=== PATIENT | female | born 1985 | race Caucasian/White ===

== ENCOUNTER 2017-10-22 08:36 | Emergency (ER) | payer SELFPAY ==
[~2017-10-22] VITALS: Ht 167.6 cm; Wt 86.8 kg
[2017-10-22 08:53] VITALS: BP 139/84
--- NOTE | 2017-10-22 08:56 | NUR ---
AAO PT AMBULATES TO BED 12 AFTER PROVIDING URINE SAMPLE
--- NOTE | 2017-10-22 09:00 | NUR ---
32f bib friend with c/o 6/10 intermittent "sharp" mid lower abd pain x last night. Pt denies any n/v/d or fevers. Pt sts she is approx 3-4 wks . Pt sts approx LMP 09/19/17. A0. Pt denies any vaginal bleeding or discharge. Pt is aox4 with steady gait. RR are even and unlabored. Skin warm/pink/dry. No acute distress at this time. Awaiting er md piña. All needs met at this time. Will continue to monitor.
--- NOTE | 2017-10-22 09:10 | NUR ---
lab by bedside
--- NOTE | 2017-10-22 09:16 | NUR ---
us by bedside
[2017-10-22 09:22] LABS: BASOPHILS # (AUTO) 0.3 K/uL (0.00-0.22); EOSINOPHILS # (AUTO) 0.1 K/uL (0-0.4); EOSINOPHILS % (AUTO) 1.1 % (0.0-4.0); HEMATOCRIT 38.9 % (36-48); HEMOGLOBIN 12.8 g/dL (12.0-16.0); LYMPHOCYTES # (AUTO) 2.4 K/uL (2.5-16.5); LYMPHOCYTES % (AUTO) 27.9 % (20.5-51.1); MEAN CORPUSCULAR HEMOGLOBIN 27 pg (27-31); MEAN CORPUSCULAR HGB CONC 33 g/dL (33-37); MEAN CORPUSCULAR VOLUME 82 fL (80-94); MONOCYTES # (AUTO) 0.5 K/uL (0.8-1.0); MONOCYTES % (AUTO) 5.8 % (1.7-9.3); NEUTROPHILS # (AUTO) 5.2 K/uL (1.8-7.7); NEUTROPHILS % (AUTO) 61.2 % (42.2-75.2); PLATELET COUNT (AUTO) 245 K/uL (140-450); RED BLOOD CELL COUNT(AUTO) 4.73 MIL/uL (4.20-5.40); RED CELL DISTRIBUTION WIDTH 13.1 % (11.6-13.7); WHITE BLOOD COUNT (AUTO) 8.5 K/uL (4.8-10.8)
[2017-10-22 09:23] LABS: BILIRUBIN,URINE NEGATIVE (NEGATIVE); BLOOD, URINE NEGATIVE (NEGATIVE); COLOR,URINE YELLOW (YELLOW); LEUKOCYTE ESTERASE ,URINE NEGATIVE (NEGATIVE); NITRITE, URINE NEGATIVE (NEGATIVE); UGLUCOSE 1+ (NEGATIVE)
--- NOTE | 2017-10-22 09:36 | NUR ---
Note undone in EDM - 10/22/17 at 0940 by JOON Patient discharged with v/s stable. Written and verbal after care instructions given and explained. Patient alert, oriented and verbalized understanding of instructions. Ambulatory with steady gait. All questions addressed prior to discharge. ID band removed. Patient advised to follow up with PMD. Rx of Tamiflu, Motin, and Prednisone given. Patient educated on indication of medication including possible reaction and side effects. Opportunity to ask questions provided and answered.
[2017-10-22 09:47] LABS: APPEARANCE,URINE SLIGHTLY HAZY (CLEAR); RBC,URINE 0-5 (RARE) /HPF (0-5)
[2017-10-22 09:48] LABS: WBC,URINE 0-5 (RARE) /HPF (0-5); YEAST,URINE Few /HPF (None Seen)
[2017-10-22] MEDS ORDERED: DICYCLOMINE HCL LIQUID 20 MG, ALUMINUM HYD/MAG/SIMETHICONE 30 ML, LIDOCAINE VISCOUS 2% ... PO ONE ×3 (09:55)
[2017-10-22 11:13] VITALS: BP 137/72
--- NOTE | 2017-10-22 11:13 | NUR ---
Patient discharged with v/s stable. Written and verbal after care instructions given and explained. Patient verbalized understanding. Ambulatory with steady gait. All questions addressed prior to discharge. Advised to follow up with PMD.
== END 2017-10-22 11:13 | disposition home or self-care (01) ==
LOC: MED 08:36
DX: O20.0 Threatened abortion (principal); I10 Essential (primary) hypertension; E11.9 Type 2 diabetes mellitus without complications; Z90.49 Acquired absence of other specified parts of digestive tract; Z3A.01 Less than 8 weeks gestation of pregnancy
CPT/HCPCS: 36415; 76801; 76817; 81001; 81025; 84702; 85025; 86900; 86901; 87086; 99285; Q0092

== ENCOUNTER 2017-10-27 15:37 | Emergency (ER) | payer SELFPAY ==
[~2017-10-27] VITALS: Ht 167.6 cm; Wt 86.6 kg
[2017-10-27 15:46] VITALS: BP 134/88
--- NOTE | 2017-10-27 15:55 | NUR ---
PT AMBULATED TO [facility]
--- NOTE | 2017-10-27 16:03 | NUR ---
PATIENT PRESENTS TO ED WITH LEFT INDEX LAC WHILE ATTEMPTING TO OPEN A BOTTLE APPROX 1 HR AGO. TETANUS SHOT-UTD JUL 2017 PT IS 5 WEEKS MED HX: DM, HTN RX: METFORMIN, VITAMIN; DENIES N/V/D; SKIN IS PINK/WARM/DRY; AAOX4 WITH EVEN AND STEADY GAIT; LUNGS CLEAR BL; HR EVEN AND REGULAR; PT DENIES ANY FEVER, CP, SOB, OR COUGH AT THIS TIME; PATIENT STATES PAIN OF 5/10 AT THIS TIME; VSS; ER MD MADE AWARE OF PT STATUS.
--- NOTE | 2017-10-27 16:07 | NUR ---
MARGARET WILLARD EVALUATING PT AT BEDSIDE
--- NOTE | 2017-10-27 16:14 | NUR ---
PT MOVED TO BED 4
[2017-10-27] MEDS ORDERED: LIDOCAINE 1% 500 MG/50 ML VIAL INJ SCH (16:15)
[2017-10-27] MEDS ORDERED: BUPIVACAINE-MPF 0.5% 10 ML VIAL INJ ONE (16:15)
[2017-10-27] MEDS ORDERED: LIDOCAINE MPF 1% - **ER/OR** 5 ML ONE (16:17)
[2017-10-27] MEDS ORDERED: BACITRACIN OINT 500 UNITS/GM PKT TP ONE (16:50)
[2017-10-27 17:07] VITALS: BP 131/81
--- NOTE | 2017-10-27 17:07 | NUR ---
Patient discharged with v/s stable. Written and verbal after care instructions given and explained. Patient alert, oriented and verbalized understanding of instructions. Ambulatory with steady gait. All questions addressed prior to discharge. ID band removed. Patient advised to follow up with PMD. Rx of KEFLEX, TYLENOL given. Patient educated on indication of medication including possible reaction and side effects. Opportunity to ask questions provided and answered.
== END 2017-10-27 17:07 | disposition home or self-care (01) ==
LOC: MED 15:37
DX: S61.211A Laceration without foreign body of left index finger without damage to nail, initial encounter (principal); W26.0XXA Contact with knife, initial encounter; Y93.89 Activity, other specified; Y92.89 Other specified places as the place of occurrence of the external cause; Y99.8 Other external cause status
CPT/HCPCS: 12002; 99283; J2001; J3490

== ENCOUNTER 2017-11-25 05:45 | Emergency (ER) | payer MEDICAID ==
[~2017-11-25] VITALS: Ht 167.6 cm; Wt 92.6 kg
[2017-11-25 05:48] VITALS: BP 137/90
--- NOTE | 2017-11-25 05:55 | NUR ---
lower abd pain radiating to her back started last night, 2 months lmp unsure . DENIES N/V/D; SKIN IS PINK/WARM/DRY; AAOX4 WITH EVEN AND STEADY GAIT; LUNGS CLEAR BL; HR EVEN AND REGULAR; PT DENIES ANY FEVER, CP, SOB, OR COUGH AT THIS TIME; PATIENT STATES PAIN OF 7/10 AT THIS TIME; VSS; PATIENT POSITIONED FOR COMFORT; HOB ELEVATED; BEDRAILS UP X2; BED DOWN. ER MD MADE AWARE OF PT STATUS. PT'S AT BEDSIDE
--- NOTE | 2017-11-25 06:06 | NUR ---
PATIENT AMBULATED TO ER BED 10
[2017-11-25] MEDS ORDERED: ACETAMINOPHEN EXTRA STRENGTH 500 MG TAB PO ONE (06:50)
[2017-11-25 07:11] LABS: BASOPHILS # (AUTO) 0.4 K/uL (0.00-0.22); BASOPHILS % (AUTO) 4.7 % (0.0-2.0); EOSINOPHILS # (AUTO) 0.1 K/uL (0-0.4); EOSINOPHILS % (AUTO) 1.8 % (0.0-4.0); HEMATOCRIT 39.4 % (36-48); HEMOGLOBIN 13.3 g/dL (12.0-16.0); LYMPHOCYTES # (AUTO) 2.6 K/uL (2.5-16.5); LYMPHOCYTES % (AUTO) 31.7 % (20.5-51.1); MEAN CORPUSCULAR HEMOGLOBIN 29 pg (27-31); MEAN CORPUSCULAR HGB CONC 34 g/dL (33-37); MONOCYTES # (AUTO) 0.7 K/uL (0.8-1.0); MONOCYTES % (AUTO) 8.1 % (1.7-9.3); NEUTROPHILS # (AUTO) 4.4 K/uL (1.8-7.7); NEUTROPHILS % (AUTO) 53.7 % (42.2-75.2); PLATELET COUNT (AUTO) 159 K/uL (140-450); RED BLOOD CELL COUNT(AUTO) 4.63 MIL/uL (4.20-5.40); RED CELL DISTRIBUTION WIDTH 15.3 % (11.6-13.7); WHITE BLOOD COUNT (AUTO) 8.2 K/uL (4.8-10.8)
[2017-11-25 07:12] LABS: APPEARANCE,URINE SL CLOUDY (CLEAR); BILIRUBIN,URINE NEGATIVE (NEGATIVE); BLOOD, URINE NEGATIVE (NEGATIVE); COLOR,URINE YELLOW (YELLOW); LEUKOCYTE ESTERASE ,URINE NEGATIVE (NEGATIVE); NITRITE, URINE POSITIVE (NEGATIVE); UGLUCOSE NEGATIVE (NEGATIVE)
--- NOTE | 2017-11-25 07:15 | NUR ---
REPORT RECIEVED FROM MATTEO DANIEL. PT AAOX4 PAIN LEVEL 8/10 IN LOWER BACK.VVS AT THIS TIME.
[2017-11-25 07:51] LABS: RBC,URINE 0-5 (RARE) /HPF (0-5); WBC,URINE 0-5 (RARE) /HPF (0-5)
--- NOTE | 2017-11-25 08:13 | NUR ---
PT RESTING IN BED AND STATES THAT HER PAIN IS AT LEVEL 4
[2017-11-25 08:29] VITALS: BP 121/86
== END 2017-11-25 08:29 | disposition home or self-care (01) ==
LOC: MED 05:45
DX: O23.41 Unspecified infection of urinary tract in pregnancy, first trimester (principal); E11.9 Type 2 diabetes mellitus without complications; I10 Essential (primary) hypertension; Z3A.10 10 weeks gestation of pregnancy
CPT/HCPCS: 36415; 76801; 81001; 81025; 84702; 85025; 86900; 86901; 87086; 99285; Q0092

== ENCOUNTER 2018-03-16 21:28 | Observation (INO) | payer MEDICAID ==
[~2018-03-16] VITALS: Ht 167.6 cm; Wt 96.2 kg
[2018-03-16 21:39] VITALS: BP 129/83
--- NOTE | 2018-03-16 21:55 | NUR ---
TALKED WITH IGNACIO IN [employer] PT WILL BE SENT TO OB. DR FUNES MADE AWARE.
--- NOTE | 2018-03-16 21:58 | NUR ---
PT TRANSPORTED TO OB VIA W/C IN STABLE CONDITION
[2018-03-16] MEDS ORDERED: PREN-546 PO (22:54)
[2018-03-16] MEDS ORDERED: NOVR IM ×2 (22:58→23:00)
[2018-03-16] MEDS ORDERED: FERR-252 PO (22:58)
[2018-03-16] MEDS ORDERED: INSU10SU8 SUBQ ×2 (23:00→23:01)
[2018-03-16] MEDS ORDERED: ASPI81EC98 PO (23:02)
[2018-03-16] MEDS ORDERED: LACTATED RINGERS 1,000 ML IV SCH (23:35)
[2018-03-16] MEDS ORDERED: INSULIN LISPRO SLIDING SCALE 100 UNITS/ML VIAL SUBQ PRN (23:35)
[2018-03-16] MEDS ORDERED: INSULIN NPH HUM/REG INSULIN HM 100 UNIT/ML 10 ML VIAL SUBQ ONE (23:35)
[2018-03-16] MEDS ORDERED: INSULIN NPH HUMAN ISOPHANE 100 UNIT/ML VIAL SUBQ ONE (23:55)
[2018-03-16 23:58] LABS: ANION GAP 12.3 (8-16); CARBON DIOXIDE 24.5 mmol/L (21-32); CREATININE 0.7 mg/dL (0.6-1.3); POTASSIUM 3.8 mmol/L (3.5-5.1)
[2018-03-17 00:09] LABS: ALBUMIN 2.5 g/dL (3.4-5.0); TOTAL BILIRUBIN 0.1 mg/dL (0.0-1.0)
[2018-03-17 02:56] VITALS: BP 121/78
[2018-03-17] MEDS ORDERED: INSULIN NPH HUMAN ISOPHANE 100 UNIT/ML VIAL SUBQ SCH ×2 (06:30→21:00)
[2018-03-17] MEDS ORDERED: INSULIN REGULAR, HUMAN 100 UNIT/ML VIAL SUBQ SCH ×2 (06:30→16:00)
[2018-03-17] MEDS ORDERED: BLOOD GLUCOSE MONITORING 1 DEV DEV FS SCH (07:30)
--- NOTE | 2018-03-17 08:39 | NUR ---
PATIENT HAS BEEN SCREENED AND CATEGORIZED HIGH NUTRITION RISK. PATIENT WILL BE SEEN WITHIN 1-2 DAYS OF ADMISSION. 03/17/18 03/18/[address]
== END 2018-03-17 09:37 | disposition home or self-care (01) ==
LOC: MED 21:28 → EDSTATUS 21:57 → MLD 22:00
PROVIDERS: ADMIT Obstetrics & Gynecology; ATTEND Obstetrics & Gynecology
DX: O24.112 Pre-existing type 2 diabetes mellitus, in pregnancy, second trimester (principal); Z3A.25 25 weeks gestation of pregnancy
CPT/HCPCS: 36415; 80053; 82948; 96372; G0378; J1815; J7120

== ENCOUNTER 2018-11-10 14:05 | Emergency (ER) | payer MEDICAID ==
[~2018-11-10] VITALS: Ht 167.6 cm; Wt 90.7 kg
[~2018-11-10 14:05] MED LIST: ASPI81EC98 PO; FERR-252 PO; NOV7030 SUBQ; NOVR IM; PREN-546 PO
[2018-11-10 14:18] VITALS: BP 127/86
--- NOTE | 2018-11-10 14:33 | NUR ---
PATIENT PRESENTS TO ED WITH THE CHIEF C/O ABSCESS ON LEFT THIGH X4 DAYS. +DRAINAGE, +REDNESS. PT REPORTS HAVING FEVER ON THURSDAY. TOOK IBUPROFEN FOR FEVER AND PAIN. LAST TAKEN WAS 8 AM THIS MORNING. DENIES N/V/D. SKIN IS PINK/WARM/DRY. AAOX4 WITH EVEN AND STEADY GAIT. PT DENIES ANY CP, SOB, OR COUGH AT THIS TIME. PATIENT STATES PAIN OF 8/10 AT THIS TIME. VSS. PATIENT POSITIONED FOR COMFORT. HOB ELEVATED. BEDRAILS UP X2. BED DOWN. ER MD MADE AWARE OF PT STATUS.
[2018-11-10] MEDS ORDERED: NACL 0.9% 1,000 ML IV SCH (15:01)
[2018-11-10] MEDS ORDERED: KETOROLAC 30 MG/ML VIAL IVP ONE (15:05)
[2018-11-10 15:22] LABS: BASOPHILS % (AUTO) 0.2 % (0.0-2.0); EOSINOPHILS # (AUTO) 0.2 K/uL (0-0.4); EOSINOPHILS % (AUTO) 1.8 % (0.0-4.0); HEMOGLOBIN 14.7 g/dL (12.0-16.0); LYMPHOCYTES # (AUTO) 2.9 K/uL (2.5-16.5); LYMPHOCYTES % (AUTO) 33.9 % (20.5-51.1); MEAN CORPUSCULAR HEMOGLOBIN 30 pg (27-31); MEAN CORPUSCULAR HGB CONC 34 g/dL (33-37); MEAN CORPUSCULAR VOLUME 87.4 fL (80-94); MONOCYTES # (AUTO) 0.4 K/uL (0.8-1.0); MONOCYTES % (AUTO) 4.9 % (1.7-9.3); NEUTROPHILS % (AUTO) 59.2 % (42.2-75.2); PLATELET COUNT (AUTO) 215 K/uL (140-450); RED BLOOD CELL COUNT(AUTO) 4.93 MIL/uL (4.20-5.40); RED CELL DISTRIBUTION WIDTH 12.8 % (11.6-13.7); WHITE BLOOD COUNT (AUTO) 8.5 K/uL (4.8-10.8)
[2018-11-10 15:28] LABS: APPEARANCE,URINE CLEAR (CLEAR); BILIRUBIN,URINE NEGATIVE (NEGATIVE); BLOOD, URINE NEGATIVE (NEGATIVE); COLOR,URINE YELLOW (YELLOW); LEUKOCYTE ESTERASE ,URINE NEGATIVE (NEGATIVE); NITRITE, URINE NEGATIVE (NEGATIVE); UGLUCOSE 3+ (NEGATIVE)
[2018-11-10 15:42] LABS: ANION GAP 12.5 (8-16); CARBON DIOXIDE 27.7 mmol/L (21-32); CREATININE 0.8 mg/dL (0.6-1.3); POTASSIUM 4.2 mmol/L (3.5-5.1)
[2018-11-10 15:47] LABS: ALBUMIN -1.2 g/dL (3.4-5.0); TOTAL BILIRUBIN 0.2 mg/dL (0.0-1.0)
[2018-11-10 16:55] VITALS: BP 127/88
--- NOTE | 2018-11-10 16:55 | NUR ---
Patient discharged with v/s stable. Written and verbal after care instructions given and explained. Patient alert, oriented and verbalized understanding of instructions. Ambulatory with steady gait. All questions addressed prior to discharge. ID band removed. Patient advised to follow up with PMD. Rx of NORCO 5MG-325MG AND CEPHALEXIN 500MG given. Patient educated on indication of medication including possible reaction and side effects. Opportunity to ask questions provided and answered.
== END 2018-11-10 16:55 | disposition home or self-care (01) ==
LOC: MED 14:05
DX: L02.416 Cutaneous abscess of left lower limb (principal); R50.9 Fever, unspecified; R19.7 Diarrhea, unspecified; R35.0 Frequency of micturition; E11.9 Type 2 diabetes mellitus without complications; I10 Essential (primary) hypertension; F17.200 Nicotine dependence, unspecified, uncomplicated; Z79.4 Long term (current) use of insulin; Z79.82 Long term (current) use of aspirin; Z79.899 Other long term (current) drug therapy
CPT/HCPCS: 36415; 80053; 81003; 81025; 82948; 85025; 90471; 90715; 96360; 96372; 99283; J1885; J7030

== ENCOUNTER 2018-11-16 13:13 | Emergency (ER) | payer MEDICAID ==
[~2018-11-16] VITALS: Ht 167.6 cm; Wt 100.9 kg
[2018-11-16 13:43] VITALS: BP 129/79
--- NOTE | 2018-11-16 14:13 | NUR ---
PT BIB SELF FOR HYPERGLYCEMIA. PT REPORTS BLOOD SUGAR HIGHER THAN 450 AT HOME, CURRENTLY BS IS 457. PT REPORTS DIZZYNESS AND SOB. PT REPORTS POLYDIPSEA. PT DENIES POLYURIA. PT AAOX4, PT DENIES CONFUSION, BUT REPORTS FATIGUE. VSS. ER MD TO SEE PT. MEDHX: DMII RX:METFORMIN
[2018-11-16] MEDS ORDERED: NACL 0.9% 1,000 ML IV ONE ×2 (14:20→15:00)
[2018-11-16 14:30] LABS: BASOPHILS % (AUTO) 0.2 % (0.0-2.0); EOSINOPHILS # (AUTO) 0.2 K/uL (0-0.4); EOSINOPHILS % (AUTO) 1.7 % (0.0-4.0); HEMATOCRIT 42.9 % (36-48); HEMOGLOBIN 14.9 g/dL (12.0-16.0); LYMPHOCYTES # (AUTO) 2.8 K/uL (2.5-16.5); MEAN CORPUSCULAR HEMOGLOBIN 30 pg (27-31); MEAN CORPUSCULAR HGB CONC 35 g/dL (33-37); MEAN CORPUSCULAR VOLUME 87.2 fL (80-94); MONOCYTES # (AUTO) 0.5 K/uL (0.8-1.0); MONOCYTES % (AUTO) 5.6 % (1.7-9.3); NEUTROPHILS # (AUTO) 5.6 K/uL (1.8-7.7); NEUTROPHILS % (AUTO) 61.5 % (42.2-75.2); PLATELET COUNT (AUTO) 219 K/uL (140-450); RED BLOOD CELL COUNT(AUTO) 4.92 MIL/uL (4.20-5.40); RED CELL DISTRIBUTION WIDTH 12.6 % (11.6-13.7); WHITE BLOOD COUNT (AUTO) 9.1 K/uL (4.8-10.8)
[2018-11-16 14:51] LABS: ALBUMIN 3.2 g/dL (3.4-5.0); ANION GAP 14.8 (8-16); CARBON DIOXIDE 26.4 mmol/L (21-32); CREATININE 0.8 mg/dL (0.6-1.3); POTASSIUM 4.2 mmol/L (3.5-5.1); TOTAL BILIRUBIN 0.2 mg/dL (0.0-1.0)
[2018-11-16] MEDS ORDERED: INSULIN REGULAR, HUMAN 100 UNIT/ML VIAL SUBQ ONE (15:00)
--- NOTE | 2018-11-16 15:28 | NUR ---
PT GIVING URINE SAMPLE AT THIS TIME
--- NOTE | 2018-11-16 15:35 | NUR ---
PT RESTING IN BED, VSS. PT REPORTS NON RADIATING PRESSURE HEADACHE AT 4/10. PT RECIEVED 1L NS BOLUS, TOLERATED WELL, LUNG SOUNDS CLEAR, NO EDEMA PRESENT. STARTED 2ND NS BOLUS.
[2018-11-16 15:56] LABS: APPEARANCE,URINE CLEAR (CLEAR); BILIRUBIN,URINE NEGATIVE (NEGATIVE); BLOOD, URINE TRACE-L (NEGATIVE); COLOR,URINE YELLOW (YELLOW); LEUKOCYTE ESTERASE ,URINE NEGATIVE (NEGATIVE); NITRITE, URINE NEGATIVE (NEGATIVE); PH,URINE 6.5 (5.0-9.0); UGLUCOSE 3+ (NEGATIVE)
[2018-11-16 16:00] LABS: RBC,URINE 0-5 /HPF (0-5); WBC,URINE 0-5 /HPF (0-5)
[2018-11-16 16:45] VITALS: BP 137/86
--- NOTE | 2018-11-16 16:45 | NUR ---
Patient discharged with v/s stable. Written and verbal after care instructions given and explained. Patient alert, oriented and verbalized understanding of instructions. Ambulatory with steady gait. All questions addressed prior to discharge. ID band removed. Patient advised to follow up with PMD. Rx of METFORMIN given. Patient educated on indication of medication including possible reaction and side effects. Opportunity to ask questions provided and answered.
== END 2018-11-16 16:45 | disposition home or self-care (01) ==
LOC: MED 13:13
DX: E11.65 Type 2 diabetes mellitus with hyperglycemia (principal); I10 Essential (primary) hypertension; F17.200 Nicotine dependence, unspecified, uncomplicated; Z98.890 Other specified postprocedural states; Z79.4 Long term (current) use of insulin; Z79.82 Long term (current) use of aspirin; Z79.899 Other long term (current) drug therapy; Z91.19 Patient's noncompliance with other medical treatment and regimen
CPT/HCPCS: 36415; 80053; 81001; 81025; 85025; 93005; 96361; 96374; 99284; J1815; J7030

== ENCOUNTER 2019-02-08 09:56 | Emergency (ER) | payer MEDICAID ==
[~2019-02-08] VITALS: Ht 167.6 cm; Wt 81.6 kg
[2019-02-08 10:02] VITALS: BP 125/85
--- NOTE | 2019-02-08 10:10 | NUR ---
C/O NON RADIATING, SHARP CP 10/10 X 2 DAYS. DENIES SOB, COUGH, N/V/FEVER, RECENT ILLNESS/INJURY. PT IS ALERT AND ANSWERING QUESTIONS APPROPRIATELY, SPEAKING IN FULL/CLEAR SENTENCES. VSS AT THIS TIME. CAP REFIL <3 SECONDS, NO EDEMA NOTED ON BLE. PT AMBULATORY WITH STEADY GAIT. SKIN IS PINK/WARM/DRY. LUNGS CLEAR & EQUAL BILAT. HR EVEN AND REGULAR. PATIENT POSITIONED FOR COMFORT; HOB ELEVATED; BEDRAILS UP X1; BED IN LOW POSITION.
--- NOTE | 2019-02-08 10:12 | NUR ---
PT TRIAGED AT BEDSIDE. BED 9. DR. HART AT BEDSIDE TO EVALUATE PT.
[2019-02-08] MEDS ORDERED: NACL 0.9% 1,000 ML IV ONE ×2 (10:15→12:20)
[2019-02-08] MEDS ORDERED: KETOROLAC 30 MG/ML VIAL IVP ONE (10:15)
[2019-02-08] MEDS ORDERED: METF500T PO (10:23)
--- NOTE | 2019-02-08 10:40 | NUR ---
PT AMBULATED TO RESTROOM
[2019-02-08 10:42] LABS: BASOPHILS % (AUTO) 0.3 % (0.0-2.0); EOSINOPHILS # (AUTO) 0.1 K/uL (0-0.4); EOSINOPHILS % (AUTO) 0.8 % (0.0-4.0); HEMATOCRIT 36.6 % (36-48); HEMOGLOBIN 12.5 g/dL (12.0-16.0); LYMPHOCYTES # (AUTO) 1.5 K/uL (2.5-16.5); LYMPHOCYTES % (AUTO) 17.4 % (20.5-51.1); MEAN CORPUSCULAR HEMOGLOBIN 30 pg (27-31); MEAN CORPUSCULAR HGB CONC 34 g/dL (33-37); MONOCYTES # (AUTO) 0.4 K/uL (0.8-1.0); MONOCYTES % (AUTO) 4.6 % (1.7-9.3); NEUTROPHILS # (AUTO) 6.7 K/uL (1.8-7.7); NEUTROPHILS % (AUTO) 76.9 % (42.2-75.2); PLATELET COUNT (AUTO) 197 K/uL (140-450); RED BLOOD CELL COUNT(AUTO) 4.16 MIL/uL (4.20-5.40); RED CELL DISTRIBUTION WIDTH 13.5 % (11.6-13.7); WHITE BLOOD COUNT (AUTO) 8.7 K/uL (4.8-10.8)
--- NOTE | 2019-02-08 10:48 | NUR ---
urine collected and sent to lab
[2019-02-08 11:35] LABS: ANION GAP 15.2 (8-16); CREATININE 1.4 mg/dL (0.6-1.3); POTASSIUM 4.2 mmol/L (3.5-5.1); TOTAL BILIRUBIN 0.3 mg/dL (0.0-1.0)
[2019-02-08] MEDS ORDERED: INSULIN REGULAR, HUMAN 100 UNIT/ML VIAL SUBQ ONE (12:20)
--- NOTE | 2019-02-08 12:35 | NUR ---
PT REFUSING INSULIN/FLUIDS AT THIS TIME. DR. ARMAS MADE AWARE
--- NOTE | 2019-02-08 12:45 | NUR ---
DR. ARMAS AT BEDSIDE DISCUSSING OPTIONS WITH PT.
[2019-02-08 12:54] VITALS: BP 131/89
--- NOTE | 2019-02-08 12:55 | NUR ---
Patient does not wish to proceed with medical care recommended by DR. ARMAS. Patient given information related to possible complications, up to and including , which could occur as a result of leaving hospital at this time. Patient verbalizes understanding of risks involved leaving against medical advice. Patient has signed AMA form.
== END 2019-02-08 12:55 | disposition left against medical advice (07) ==
LOC: MED 09:56
DX: R07.89 Other chest pain (principal); E11.65 Type 2 diabetes mellitus with hyperglycemia; J06.9 Acute upper respiratory infection, unspecified; I10 Essential (primary) hypertension; Z79.82 Long term (current) use of aspirin; Z79.4 Long term (current) use of insulin; Z79.899 Other long term (current) drug therapy; Z90.49 Acquired absence of other specified parts of digestive tract
CPT/HCPCS: 36415; 71045; 80053; 81002; 81025; 82948; 84484; 85025; 96361; 96374; 99284; J1885; J7030; Q0092; J1815

== ENCOUNTER 2019-04-13 07:50 | Emergency (ER) | payer MEDICAID ==
[~2019-04-13] VITALS: Ht 167.6 cm; Wt 95.7 kg
[~2019-04-13 07:50] MED LIST changes: +METF500T PO
[2019-04-13 08:01] VITALS: BP 122/78
--- NOTE | 2019-04-13 08:09 | NUR ---
PATIENT AMBULATED TO BED 11
--- NOTE | 2019-04-13 08:16 | NUR ---
PT BIB SELF WITH C/O PRODUCTIVE, MOIST COUGH ACCOMPAINIED BY RUNNY NOSE X 2DAYS. PT DENIES N/V, FEVER. STATES TO HAVE CHILLS. PT O2 SAT 96% RA, NO LABORED BREATHING OR ACCESORY MUSCLE USE NOTED. PT REPORTS 7/10 PAIN WHEN SHE IS COUGHING, STATES IT IS WORSE WHEN SHE LAYS DOWN. STATES TO HAVE THE BURINING SENSATION AT THROAT WHILE SHE SWALLOWS OR DRINK. PT AAOX4, BREATHING EVEN AND NON-LABORED. ER MD TO SEE THE PT. HX: DM, HTN RX: INSULIN
[2019-04-13 08:45] VITALS: BP 122/78
--- NOTE | 2019-04-13 08:45 | NUR ---
Patient discharged with v/s stable. Written and verbal after care instructions given and explained. Patient alert, oriented and verbalized understanding of instructions. Ambulatory with steady gait. All questions addressed prior to discharge. ID band removed. Patient advised to follow up with PMD. Rx of PROMETHAZINE HCL, AZITHROMYCIN given. Patient educated on indication of medication including possible reaction and side effects. Opportunity to ask questions provided and answered.
== END 2019-04-13 08:45 | disposition home or self-care (01) ==
LOC: MED 07:50
DX: J02.8 Acute pharyngitis due to other specified organisms (principal); I10 Essential (primary) hypertension; E11.9 Type 2 diabetes mellitus without complications; F17.200 Nicotine dependence, unspecified, uncomplicated; Z79.4 Long term (current) use of insulin; Z79.899 Other long term (current) drug therapy; Z79.84 Long term (current) use of oral hypoglycemic drugs; Z79.82 Long term (current) use of aspirin
CPT/HCPCS: 99283; 99406

== ENCOUNTER 2023-01-18 03:54 | Emergency (ER) | payer MEDICAID ==
[~2023-01-18] VITALS: Ht 165.1 cm; Wt 90.7 kg
[~2023-01-18 03:54] MED LIST changes: +METF-346 PO; -METF500T PO
--- NOTE | 2023-01-18 03:55 | NUR ---
CHAR RICE, TO CHAIR C
[2023-01-18 03:58] VITALS: BP 120/78
--- NOTE | 2023-01-18 04:21 | NUR ---
Patient being evaluated by physician
[2023-01-18] MEDS ORDERED: NACL 0.9% 1,000 ML IV ONE (04:25)
--- NOTE | 2023-01-18 04:25 | NUR ---
PT MOVED TO BED #8
[2023-01-18 05:15] LABS: BASOPHILS % (AUTO) 0.1 % (0.0-2.0); EOSINOPHILS % (AUTO) 0.3 % (0.0-4.0); HEMATOCRIT 43.7 % (36-48); HEMOGLOBIN 15.2 g/dL (12.0-16.0); LYMPHOCYTES # (AUTO) 2.6 K/uL (2.5-16.5); LYMPHOCYTES % (AUTO) 23.2 % (20.5-51.1); MEAN CORPUSCULAR HEMOGLOBIN 30 pg (27-31); MEAN CORPUSCULAR HGB CONC 35 g/dL (33-37); MEAN CORPUSCULAR VOLUME 87.1 fL (80-94); MONOCYTES # (AUTO) 0.6 K/uL (0.8-1.0); NEUTROPHILS # (AUTO) 8.1 K/uL (1.8-7.7); NEUTROPHILS % (AUTO) 71.4 % (42.2-75.2); PLATELET COUNT (AUTO) 229 K/uL (140-450); RED BLOOD CELL COUNT(AUTO) 5.01 MIL/uL (4.20-5.40); WHITE BLOOD COUNT (AUTO) 11.4 K/uL (4.8-10.8)
[2023-01-18 05:50] LABS: ANION GAP 17.7 (8-16); CREATININE 0.8 mg/dL (0.6-1.3); POTASSIUM 3.7 mmol/L (3.5-5.1)
[2023-01-18] MEDS ORDERED: INSULIN REGULAR, HUMAN 100 UNIT/ML VIAL IVP ONE (05:55)
== END 2023-01-18 06:10 ==
LOC: MED 03:54
DX: E11.65 Type 2 diabetes mellitus with hyperglycemia (principal); Z79.4 Long term (current) use of insulin; Z79.899 Other long term (current) drug therapy
CPT/HCPCS: 36415; 80048; 85025; 96361; 96374; 99283; J1815; J7030